=== PATIENT | male | born 1970 | race Caucasian/White ===

== ENCOUNTER 2018-12-06 02:08 | Inpatient (IN) | payer BC ==
[2018-12-06 02:48] LABS: ADD MAN DIFF? NO
[2018-12-06] MEDS: ACETAMINOPHEN 325 MG TAB PO (02:54)
[2018-12-06 02:55] LABS: WHITE BLOOD COUNT 8.9 10^3/ul (4.8-10.8)
[2018-12-06 02:55] LABS: BASOPHIL # 0.1 10^3/ul (0.0-0.1); BASOPHILS % 0.8 % (0.0-2.0); HEMATOCRIT 24.6 % (42.0-52.0); HEMOGLOBIN 7.6 g/dl (14.0-18.0); LYMPHOCYTES # 1.6 10^3/ul (0.8-2.9); LYMPHOCYTES % 17.5 % (15.0-51.0); MEAN CORPUSCULAR HGB CONC 30.9 g/dl (32.0-37.0); MEAN CORPUSCULAR VOLUME 87.5 fl (82.0-101.0); MEAN PLATELET VOLUME 8.9 fl (7.4-10.4); MONOCYTE # 0.9 10^3/ul (0.3-0.9); MONOCYTES % 9.9 % (0.0-11.0); NEUTROPHIL # 5.3 10^3/ul (1.6-7.5); PLATELET COUNT 282 10^3/UL (140-415); RED BLOOD COUNT 2.81 10^6/ul (4.70-6.10); RED CELL DISTRIBUTION WIDTH 15.4 % (11.5-14.5)
[2018-12-06 03:12] LABS: ALANINE AMINOTRANSFERASE 22 IU/L (13-69); ALBUMIN 3.3 g/dl (3.3-4.9); ALBUMIN/GLOBULIN RATIO 0.78; ALKALINE PHOSPHATASE 102 IU/L (42-121); ANION GAP 7 (5-13); ASPARTATE AMINO TRANSFERASE 44 IU/L (15-46); BILIRUBIN,INDIRECT 0.5 mg/dl (0-1.1); BILIRUBIN,TOTAL 0.5 mg/dl (0.2-1.3); BLOOD UREA NITROGEN 19 mg/dl (7-20); CALCIUM 8.3 mg/dl (8.4-10.2); CARBON DIOXIDE 35 mmol/L (21-31); CHLORIDE 94 mmol/L (97-110); CREATININE 5.12 mg/dl (0.61-1.24); Estimated GFR 12 mL/min (>60); GLUCOSE 86 mg/dl (70-220); POTASSIUM 5.1 mmol/L (3.5-5.1); SODIUM 136 mmol/L (135-144); TOTAL PROTEIN 7.5 g/dl (6.1-8.1)
[2018-12-06 03:16] LABS: INR 1.02; PROTIME 13.5 Sec (11.9-14.9); PT RATIO 1.1
[2018-12-06 03:17] LABS: PARTIAL THROMBOPLASTIN TIME 43.3 Sec (23.0-35.0)
[2018-12-06 03:22] LABS: TROPONIN-I 0.016 ng/ml (0.000-0.120)
[2018-12-06] MEDS: CEFEPIME 1GM/50 ML (PMX) 50 ML IVPB (03:58)
[2018-12-06] MEDS: VANCOMYCIN 1 GM (PMX) 250 ML IVPB (04:08)
[2018-12-06] MEDS: IPRATROPIUM (NEB) 0.5 MG/2.5 ML AMP HHN (05:08)
[2018-12-06] MEDS: LEVALBUTEROL (NEB) 1.25 MG/0.5 ML AMP HHN (05:08)
[2018-12-06] MEDS ORDERED: NACL 0.9% 3 ML SYG IV (06:00)
[2018-12-06] MEDS ORDERED: ONDANSETRON 4 MG INJ IV (06:00)
[2018-12-06 06:07] LABS: LACTIC ACID 0.8 mmol/L (0.5-2.0)
[2018-12-06 07:55] LABS: LACTIC ACID 0.6 mmol/L (0.5-2.0)
[2018-12-06] MEDS: GUAIFENESIN 20 MG/ML 5ML CUP PO ×2 (08:31→17:54)
[2018-12-06] MEDS: AMLODIPINE 10 MG TAB PO (08:31)
[2018-12-06] MEDS: FOLIC ACID 1 MG TAB PO (08:31)
[2018-12-06] MEDS ORDERED: VANCOMYCIN IV PER PHARMACY XX (09:00)
[2018-12-06] MEDS: VANCOMYCIN 500 MG (PMX) 100 ML IVPB (10:42)
[2018-12-06 12:36] LABS: OCCULT BLOOD STOOL NEGATIVE (NEGATIVE)
[2018-12-06] MEDS: ALBUTEROL/IPRATROPIUM (NEB) 3 ML AMP HHN ×2 (13:59→23:17)
[2018-12-06] MEDS: SODIUM POLYSTYRENE 15 GM KIT (POWDER + SORBITOL) PO (14:07)
[2018-12-06] MEDS: METOPROLOL (XL) 100 MG TAB PO (21:03)
[2018-12-07] MEDS: GUAIFENESIN 20 MG/ML 5ML CUP PO (02:48)
[2018-12-07] MEDS: CEFEPIME 1GM/50 ML (PMX) 50 ML IVPB (06:01)
[2018-12-07 06:25] LABS: ADD MAN DIFF? NO
[2018-12-07 06:36] LABS: ABNORMAL IP MESSAGE 1; BASOPHIL # 0.1 10^3/ul (0.0-0.1); BASOPHILS % 0.7 % (0.0-2.0); EOSINOPHILS # 0.9 10^3/ul (0.0-0.5); EOSINOPHILS % 9.6 % (0.0-7.0); HEMATOCRIT 20.3 % (42.0-52.0); LYMPHOCYTES # 1.5 10^3/ul (0.8-2.9); LYMPHOCYTES % 16.6 % (15.0-51.0); MEAN CORPUSCULAR HEMOGLOBIN 27.7 pg (29.0-33.0); MEAN CORPUSCULAR VOLUME 86.4 fl (82.0-101.0); MEAN PLATELET VOLUME 9.3 fl (7.4-10.4); MONOCYTE # 0.9 10^3/ul (0.3-0.9); MONOCYTES % 10.1 % (0.0-11.0); NEUTROPHIL # 5.6 10^3/ul (1.6-7.5); NEUTROPHILS % 62.4 % (39.0-77.0); PLATELET COUNT 264 10^3/UL (140-415); POSITIVE DIFF @See below; RED BLOOD COUNT 2.35 10^6/ul (4.70-6.10); RED CELL DISTRIBUTION WIDTH 15.3 % (11.5-14.5)
[2018-12-07 06:36] LABS: WHITE BLOOD COUNT 8.9 10^3/ul (4.8-10.8)
[2018-12-07 06:53] LABS: IRON 16 ug/dl (35-150)
[2018-12-07 06:54] LABS: ALANINE AMINOTRANSFERASE 21 IU/L (13-69); ALBUMIN 3.1 g/dl (3.3-4.9); ALBUMIN/GLOBULIN RATIO 0.77; ALKALINE PHOSPHATASE 96 IU/L (42-121); ANION GAP 11 (5-13); ASPARTATE AMINO TRANSFERASE 34 IU/L (15-46); BILIRUBIN,INDIRECT 0.4 mg/dl (0-1.1); BILIRUBIN,TOTAL 0.4 mg/dl (0.2-1.3); BLOOD UREA NITROGEN 28 mg/dl (7-20); CALCIUM 8.2 mg/dl (8.4-10.2); CARBON DIOXIDE 27 mmol/L (21-31); CHLORIDE 92 mmol/L (97-110); CHOL/HDL RATIO 4.3 RATIO; CHOLESTEROL 112 mg/dl (100-200); CREATININE 8.02 mg/dl (0.61-1.24); Estimated GFR 7 mL/min (>60); GLUCOSE 91 mg/dl (70-220); HDL CHOLESTEROL 26 mg/dl (27-67); LDL CHOLESTEROL,CALCULATED 56 mg/dl; MAGNESIUM 1.9 mg/dl (1.7-2.5); PHOSPHORUS 3.3 mg/dl (2.5-4.9); POTASSIUM 4.9 mmol/L (3.5-5.1); SODIUM 130 mmol/L (135-144); TOTAL PROTEIN 7.1 g/dl (6.1-8.1); TRIGLYCERIDES 149 mg/dl (0-149)
[2018-12-07 06:55] LABS: HEMOGLOBIN 6.5 g/dl (14.0-18.0); PATH REVIEW? YES
[2018-12-07 07:03] LABS: % IRON SATURATION 11 % SAT (22-52); TOTAL IRON BINDING CAPACITY 146 ug/dl (241-421)
[2018-12-07] MEDS: SOD CHLORIDE 0.9% 250 ML IV* (07:37)
[2018-12-07 07:56] LABS: ANISOCYTOSIS 1+ (0-0); BAND NEUTROPHILS #M 0.1 10^3/ul (0.0-0.6); BAND NEUTROPHILS % (M) 2 % (0-4); EOSINOPHILS % (M) 10 % (0-7); LYMPHOCYTES #M 0.8 10^3/ul (0.8-2.9); LYMPHOCYTES % (M) 10 % (15-51); MICROCYTOSIS 1+ (0-0); MONOCYTE #M 0.4 10^3/ul (0.3-0.9); MONOCYTES % (M) 5 % (0-11); PLATELET ESTIMATE NORMAL; POLYCHROMASIA 1+ (0-0); REACTIVE LYMPHOCYTES #M 0.1 10^3/ul (0.0-0.0); REACTIVE LYMPHOCYTES% (M) 2 % (0-0); SEG NEUT #M 6.3 10^3/ul (1.6-7.5); SEGMENTED NEUTROPHILS (M) % 71 % (39-77); SMUDGE%M 6 % (0-0)
[2018-12-07 08:07] LABS: HEMOGLOBIN A1C 5.6 % (0-5.9)
[2018-12-07] MEDS ORDERED: SOD CHLORIDE 0.9% 1,000 ML IV ×2 (08:28→08:33)
[2018-12-07] MEDS ORDERED: SODIUM CHLORIDE 0.9% 1L BAG IV ×2 (08:30→09:00)
[2018-12-07] MEDS: AMLODIPINE 10 MG TAB PO ×3 (09:00→16:18)
[2018-12-07] MEDS: FOLIC ACID 1 MG TAB PO (10:02)
[2018-12-07 12:03] LABS: HEPATITIS B SURFACE ANTIGEN NEGATIVE (NEGATIVE)
[2018-12-07 13:39] LABS: IMMEDIATE SPIN CROSSMATCH 1 2
[2018-12-07] MEDS: GUAIFENESIN/DM 5ML CUP PO ×2 (15:40→23:30)
[2018-12-07] MEDS: ACETAMINOPHEN 325 MG TAB PO ×2 (16:19→23:36)
[2018-12-07] MEDS: DOXAZOSIN 2 MG TAB PO (21:08)
[2018-12-07] MEDS: METOPROLOL (XL) 100 MG TAB PO (21:10)
[2018-12-07] MEDS ORDERED: LOPERAMIDE 2 MG CAP PO (23:00)
[2018-12-07] MEDS: LOPERAMIDE 2 MG CAP PO (23:29)
[2018-12-08] MEDS: GUAIFENESIN/DM 5ML CUP PO ×3 (05:53→21:12)
[2018-12-08] MEDS: CEFEPIME 1GM/50 ML (PMX) 50 ML IVPB (05:53)
[2018-12-08 06:01] LABS: ADD MAN DIFF? NO
[2018-12-08] MEDS: ALBUTEROL/IPRATROPIUM (NEB) 3 ML AMP HHN ×2 (06:09→17:58)
[2018-12-08 06:12] LABS: BASOPHIL # 0.1 10^3/ul (0.0-0.1); BASOPHILS % 0.7 % (0.0-2.0); EOSINOPHILS # 0.6 10^3/ul (0.0-0.5); EOSINOPHILS % 9.1 % (0.0-7.0); HEMATOCRIT 24.3 % (42.0-52.0); HEMOGLOBIN 7.9 g/dl (14.0-18.0); LYMPHOCYTES # 1.1 10^3/ul (0.8-2.9); LYMPHOCYTES % 16.3 % (15.0-51.0); MEAN CORPUSCULAR HEMOGLOBIN 28.1 pg (29.0-33.0); MEAN CORPUSCULAR HGB CONC 32.5 g/dl (32.0-37.0); MEAN CORPUSCULAR VOLUME 86.5 fl (82.0-101.0); MEAN PLATELET VOLUME 9.1 fl (7.4-10.4); MONOCYTE # 0.9 10^3/ul (0.3-0.9); MONOCYTES % 12.4 % (0.0-11.0); NEUTROPHIL # 4.2 10^3/ul (1.6-7.5); NEUTROPHILS % 60.8 % (39.0-77.0); PLATELET COUNT 233 10^3/UL (140-415); RED BLOOD COUNT 2.81 10^6/ul (4.70-6.10); RED CELL DISTRIBUTION WIDTH 14.2 % (11.5-14.5)
[2018-12-08 06:12] LABS: WHITE BLOOD COUNT 6.9 10^3/ul (4.8-10.8)
[2018-12-08 06:59] LABS: ANION GAP 7 (5-13); BLOOD UREA NITROGEN 18 mg/dl (7-20); CALCIUM 8.1 mg/dl (8.4-10.2); CARBON DIOXIDE 27 mmol/L (21-31); CHLORIDE 96 mmol/L (97-110); CREATININE 6.06 mg/dl (0.61-1.24); Estimated GFR 10 mL/min (>60); GLUCOSE 89 mg/dl (70-220); POTASSIUM 4.8 mmol/L (3.5-5.1); SODIUM 130 mmol/L (135-144)
[2018-12-08 07:00] LABS: MAGNESIUM 1.9 mg/dl (1.7-2.5)
[2018-12-08 07:00] LABS: PHOSPHORUS 3.4 mg/dl (2.5-4.9)
[2018-12-08] MEDS: FOLIC ACID 1 MG TAB PO (08:52)
[2018-12-08] MEDS: AMLODIPINE 10 MG TAB PO (08:52)
[2018-12-08] MEDS: DOXAZOSIN 2 MG TAB PO ×2 (08:53→21:11)
[2018-12-08] MEDS: hydrALAzine 20 MG INJ IV (12:08)
[2018-12-08] MEDS: HEPARIN 1000 UNITS/ML 10 ML INJ CATHETER (13:22)
[2018-12-08] MEDS: SOD FERRIC GLUC COMPLX 125 MG in SOD CHLORIDE 0.9% 100 ML IVPB (13:40)
[2018-12-08] MEDS: EPOETIN ALFA-EPBX (NON-ESRD 10,000 UNIT/ML VIAL SC (16:42)
[2018-12-08] MEDS ORDERED: EPOETIN ALFA-EPBX (NON-ESRD 10,000 UNIT/ML VIAL SC (17:00)
[2018-12-08] MEDS: VANCOMYCIN 1 GM 250 ML IVPB (17:37)
[2018-12-08] MEDS: METOPROLOL (XL) 100 MG TAB PO (21:11)
[2018-12-09] MEDS: GUAIFENESIN/DM 5ML CUP PO ×4 (02:50→20:08)
[2018-12-09] MEDS: ACETAMINOPHEN 325 MG TAB PO ×2 (02:51→10:07)
[2018-12-09] MEDS: CEFEPIME 1GM/50 ML (PMX) 50 ML IVPB (05:14)
[2018-12-09 06:15] LABS: ADD MAN DIFF? NO
[2018-12-09 06:56] LABS: ANION GAP 5 (5-13); BLOOD UREA NITROGEN 12 mg/dl (7-20); CALCIUM 8.1 mg/dl (8.4-10.2); CARBON DIOXIDE 29 mmol/L (21-31); CHLORIDE 96 mmol/L (97-110); CREATININE 5.38 mg/dl (0.61-1.24); Estimated GFR 12 mL/min (>60); GLUCOSE 90 mg/dl (70-220); POTASSIUM 4.3 mmol/L (3.5-5.1); SODIUM 130 mmol/L (135-144)
[2018-12-09 07:04] LABS: PHOSPHORUS 3.5 mg/dl (2.5-4.9)
[2018-12-09 07:04] LABS: MAGNESIUM 1.8 mg/dl (1.7-2.5)
[2018-12-09 07:28] LABS: WHITE BLOOD COUNT 5.9 10^3/ul (4.8-10.8)
[2018-12-09 07:28] LABS: BASOPHIL # 0.1 10^3/ul (0.0-0.1); BASOPHILS % 1.5 % (0.0-2.0); EOSINOPHILS # 0.5 10^3/ul (0.0-0.5); EOSINOPHILS % 7.8 % (0.0-7.0); HEMATOCRIT 22.7 % (42.0-52.0); HEMOGLOBIN 7.4 g/dl (14.0-18.0); LYMPHOCYTES # 1.1 10^3/ul (0.8-2.9); MEAN CORPUSCULAR HGB CONC 32.6 g/dl (32.0-37.0); MEAN PLATELET VOLUME 9.3 fl (7.4-10.4); MONOCYTE # 1.1 10^3/ul (0.3-0.9); MONOCYTES % 18.3 % (0.0-11.0); NEUTROPHIL # 3.2 10^3/ul (1.6-7.5); NEUTROPHILS % 53.7 % (39.0-77.0); PLATELET COUNT 244 10^3/UL (140-415); RED BLOOD COUNT 2.64 10^6/ul (4.70-6.10); RED CELL DISTRIBUTION WIDTH 14.5 % (11.5-14.5)
[2018-12-09 07:39] LABS: HIV 1&2 ANTIBODY NEGATIVE (NEGATIVE)
[2018-12-09] MEDS: FOLIC ACID 1 MG TAB PO (08:12)
[2018-12-09] MEDS: DOXAZOSIN 2 MG TAB PO ×2 (08:13→20:14)
[2018-12-09] MEDS: AMLODIPINE 10 MG TAB PO (08:13)
[2018-12-09 08:35] LABS: PROCALCITONIN 0.74 ng/mL (0.00-0.10)
[2018-12-09] MEDS: SOD FERRIC GLUC COMPLX 125 MG in SOD CHLORIDE 0.9% 100 ML IVPB (12:37)
[2018-12-09] MEDS: ALBUTEROL/IPRATROPIUM (NEB) 3 ML AMP HHN ×2 (12:53→22:03)
[2018-12-09] MEDS: METOPROLOL (XL) 100 MG TAB PO (20:14)
[2018-12-09] MEDS ORDERED: SOD CHLORIDE 0.9% 1,000 ML IV (21:10)
[2018-12-09] MEDS ORDERED: SODIUM CHLORIDE 0.9% 1L BAG IV (21:30)
[2018-12-09] MEDS ORDERED: HEPARIN 1000 UNITS/ML 10 ML INJ CATHETER (21:30)
[2018-12-10] MEDS: GUAIFENESIN/DM 5ML CUP PO ×5 (00:02→20:59)
[2018-12-10] MEDS: ACETAMINOPHEN 325 MG TAB PO (01:28)
[2018-12-10] MEDS: CEFEPIME 1GM/50 ML (PMX) 50 ML IVPB (05:20)
[2018-12-10 06:23] LABS: ADD MAN DIFF? NO
[2018-12-10 06:35] LABS: BASOPHIL # 0.1 10^3/ul (0.0-0.1); BASOPHILS % 1.3 % (0.0-2.0); EOSINOPHILS # 0.5 10^3/ul (0.0-0.5); EOSINOPHILS % 8.1 % (0.0-7.0); HEMOGLOBIN 7.6 g/dl (14.0-18.0); LYMPHOCYTES # 1.2 10^3/ul (0.8-2.9); MEAN CORPUSCULAR VOLUME 84.9 fl (82.0-101.0); MEAN PLATELET VOLUME 9.6 fl (7.4-10.4); MONOCYTE # 1.1 10^3/ul (0.3-0.9); NEUTROPHIL # 3.3 10^3/ul (1.6-7.5); PLATELET COUNT 280 10^3/UL (140-415); RED BLOOD COUNT 2.71 10^6/ul (4.70-6.10); RED CELL DISTRIBUTION WIDTH 14.3 % (11.5-14.5)
[2018-12-10 06:35] LABS: WHITE BLOOD COUNT 6.2 10^3/ul (4.8-10.8)
[2018-12-10 06:54] LABS: PHOSPHORUS 3.8 mg/dl (2.5-4.9)
[2018-12-10 06:54] LABS: MAGNESIUM 1.9 mg/dl (1.7-2.5)
[2018-12-10 07:03] LABS: ANION GAP 8 (5-13); BLOOD UREA NITROGEN 19 mg/dl (7-20); CALCIUM 7.8 mg/dl (8.4-10.2); CARBON DIOXIDE 26 mmol/L (21-31); CHLORIDE 92 mmol/L (97-110); CREATININE 7.58 mg/dl (0.61-1.24); Estimated GFR 8 mL/min (>60); GLUCOSE 83 mg/dl (70-220); POTASSIUM 4.8 mmol/L (3.5-5.1); SODIUM 126 mmol/L (135-144)
[2018-12-10] MEDS: AMLODIPINE 10 MG TAB PO (09:00)
[2018-12-10] MEDS: DOXAZOSIN 2 MG TAB PO ×2 (09:00→21:00)
[2018-12-10] MEDS: FOLIC ACID 1 MG TAB PO (09:37)
[2018-12-10] MEDS: SOD FERRIC GLUC COMPLX 125 MG in SOD CHLORIDE 0.9% 100 ML IVPB (12:25)
[2018-12-10] MEDS: ALBUTEROL/IPRATROPIUM (NEB) 3 ML AMP HHN (13:25)
[2018-12-10] MEDS: BENZONATATE 100 MG CAP PO ×2 (15:22→20:59)
[2018-12-10] MEDS: EPOETIN ALFA-EPBX (NON-ESRD 10,000 UNIT/ML VIAL SC (17:25)
[2018-12-10] MEDS: METOPROLOL (XL) 100 MG TAB PO (21:00)
[2018-12-11] MEDS: ACETAMINOPHEN 325 MG TAB PO (02:07)
[2018-12-11] MEDS: GUAIFENESIN/DM 5ML CUP PO ×3 (04:56→13:03)
[2018-12-11 05:50] LABS: ADD MAN DIFF? NO
[2018-12-11] MEDS: HEPARIN 1000 UNITS/ML 10 ML INJ CATHETER (05:59)
[2018-12-11] MEDS: CEFEPIME 1GM/50 ML (PMX) 50 ML IVPB (06:05)
[2018-12-11 06:07] LABS: BASOPHIL # 0.1 10^3/ul (0.0-0.1); BASOPHILS % 1.4 % (0.0-2.0); EOSINOPHILS # 0.5 10^3/ul (0.0-0.5); EOSINOPHILS % 8.7 % (0.0-7.0); HEMATOCRIT 22.2 % (42.0-52.0); HEMOGLOBIN 7.5 g/dl (14.0-18.0); LYMPHOCYTES % 16.5 % (15.0-51.0); MEAN CORPUSCULAR HGB CONC 33.8 g/dl (32.0-37.0); MEAN CORPUSCULAR VOLUME 82.8 fl (82.0-101.0); MEAN PLATELET VOLUME 9.2 fl (7.4-10.4); MONOCYTE # 0.9 10^3/ul (0.3-0.9); MONOCYTES % 14.7 % (0.0-11.0); NEUTROPHIL # 3.6 10^3/ul (1.6-7.5); NEUTROPHILS % 58.1 % (39.0-77.0); PLATELET COUNT 343 10^3/UL (140-415); RED BLOOD COUNT 2.68 10^6/ul (4.70-6.10); RED CELL DISTRIBUTION WIDTH 14.3 % (11.5-14.5)
[2018-12-11 06:07] LABS: WHITE BLOOD COUNT 6.2 10^3/ul (4.8-10.8)
[2018-12-11 06:24] LABS: MAGNESIUM 1.8 mg/dl (1.7-2.5)
[2018-12-11 06:24] LABS: PHOSPHORUS 2.4 mg/dl (2.5-4.9)
[2018-12-11 06:27] LABS: ANION GAP 7 (5-13); BLOOD UREA NITROGEN 11 mg/dl (7-20); CALCIUM 7.9 mg/dl (8.4-10.2); CARBON DIOXIDE 30 mmol/L (21-31); CHLORIDE 94 mmol/L (97-110); CREATININE 4.27 mg/dl (0.61-1.24); Estimated GFR 15 mL/min (>60); GLUCOSE 89 mg/dl (70-220); POTASSIUM 3.8 mmol/L (3.5-5.1); SODIUM 131 mmol/L (135-144)
[2018-12-11 06:32] LABS: VANCOMYCIN,RANDOM 12.8 ug/ml
[2018-12-11] MEDS: BENZONATATE 100 MG CAP PO ×2 (09:23→13:03)
[2018-12-11] MEDS: FOLIC ACID 1 MG TAB PO (09:23)
[2018-12-11] MEDS: DOXAZOSIN 2 MG TAB PO (09:24)
[2018-12-11] MEDS: AMLODIPINE 10 MG TAB PO (09:25)
[2018-12-11] MEDS: VANCOMYCIN 1 GM 250 ML IVPB (11:25)
== END 2018-12-11 16:30 | disposition home or self-care (01) | DRG 193 ==
LOC: E/R 02:08 → PP2 04:31
PROC: 5A1D70Z Performance of Urinary Filtration, Intermittent, Less than 6 Hours Per Day (ICD-10-PCS; principal; 2018-12-07)
PROC: 30233N1 Transfusion of Nonautologous Red Blood Cells into Peripheral Vein, Percutaneous Approach (ICD-10-PCS; 2018-12-07)
DX: J18.9 Pneumonia, unspecified organism (principal); N18.6 End stage renal disease; I12.0 Hypertensive chronic kidney disease with stage 5 chronic kidney disease or end stage renal disease; E87.1 Hypo-osmolality and hyponatremia; T86.12 Kidney transplant failure; E87.5 Hyperkalemia; E11.22 Type 2 diabetes mellitus with diabetic chronic kidney disease; D63.1 Anemia in chronic kidney disease; E78.5 Hyperlipidemia, unspecified; Z99.2 Dependence on renal dialysis
CPT/HCPCS: 36430; 71045; 71250; 80048; 80053; 80061; 80202; 82270; 82728; 83036; 83540; 83605; 83735; 84100; 84145; 84484; 85025; 85610; 85730; 86644; 86703; 86850; 86900; 86901; 86920; 87040-91; 87045; 87070; 87075; 87340; 87400; 90935; 93005; 93306; 94640; 94664; 96365; 96375; 99217; 99285-25; G0378

== ENCOUNTER 2018-12-17 19:28 | Emergency (ER) | payer SELFPAY, BC | END 2018-12-18 00:15 | disposition left against medical advice (07) | LOC: E/R 19:28 | DX: Z53.21 Procedure and treatment not carried out due to patient leaving prior to being seen by health care provider (principal) | CPT/HCPCS: 93005 ==